=== PATIENT | female | born 1985 | race Asian ===

== ENCOUNTER 2017-07-27 02:45 | Inpatient (IN) | payer SELFPAY ==
[~2017-07-27] VITALS: Ht 162 cm; Wt 59.9 kg
[2017-07-27] MEDS ORDERED: CEFAZOLIN 2 GM IVPB PREMIX 50 ML IV ONE ×2 (03:30→05:38)
[2017-07-27] MEDS ORDERED: LR 1,000 ML IV ONE ×2 (03:30→05:14)
[2017-07-27 04:01] LABS: HEMATOCRIT 40.3 % (36-48); HEMOGLOBIN 13.1 g/dL (12.0-16.0); MEAN CORPUSCULAR HEMOGLOBIN 30 pg (27-31); MEAN CORPUSCULAR HGB CONC 33 % (32-36); MEAN CORPUSCULAR VOLUME 92 fL (79.0-98.0); PLATELET COUNT (AUTO) 271 K/uL (130-430); RED BLOOD CELL COUNT(AUTO) 4.41 MIL/uL (4.2-6.2); RED CELL DISTRIBUTION WIDTH 12.7 % (9.0-15.0)
[2017-07-27 04:02] LABS: BASOPHILS # (AUTO) 0.1 K/uL (0.0-0.2); BASOPHILS % (AUTO) 0.5 % (0.0-2.0); EOSINOPHILS # (AUTO) 0.1 K/uL (0.0-0.4); EOSINOPHILS % (AUTO) 1.4 % (0.0-4.0); LYMPHOCYTES % (AUTO) 20.2 % (20.5-51.5); MONOCYTES # (AUTO) 0.8 K/uL (0.0-1.0); MONOCYTES % (AUTO) 8.1 % (1.7-9.3); NEUTROPHILS % (AUTO) 69.8 % (40.0-70.0)
[2017-07-27] MEDS ORDERED: OXYTOCIN/NORMAL SALINE 1,000 ML IV ONE ×2 (04:13→06:34)
[2017-07-27] MEDS ORDERED: LR 1,000 ML IV SCH (04:13)
[2017-07-27] MEDS ORDERED: SENNOSIDES/DOCUSATE SODIUM 1 TAB TABLET(SENOKOT-S) PO PRN (04:15)
[2017-07-27] MEDS ORDERED: RHO(D) IMMUNE GLOBULIN/MALTOSE 1500 UNITS/1.3 ML (WINHRO) IM PRN (04:15)
[2017-07-27] MEDS ORDERED: LANOLIN 7 GM OINT. TP PRN (04:15)
[2017-07-27] MEDS ORDERED: ACETAMINOPHEN 325 MG TABLET PO PRN (04:15)
[2017-07-27] MEDS ORDERED: TEMAZEPAM 15 MG CAPSULE PO PRN (04:15)
[2017-07-27] MEDS ORDERED: HYDROcodone/ACETAMIN 5-325 MG TAB (NORCO/ VICODIN) PO PRN (04:15)
[2017-07-27] MEDS ORDERED: ANUSOL 1 EA SUPP.RECT (PREPARATION H) RC PRN (04:15)
[2017-07-27] MEDS ORDERED: BISACODYL 10 MG/SUPPOSITORY RC PRN (04:15)
[2017-07-27] MEDS ORDERED: SIMETHICONE 80 MG TAB.CHEW PO PRN (04:15)
[2017-07-27] MEDS ORDERED: MEASLES,MUMPS&RUBELLA VACC/PF 12500 UNIT/0.5 ML VIAL SUBQ PRN (04:15)
[2017-07-27] MEDS ORDERED: KETOROLAC TROMETHAMINE 30 MG VIAL IM PRN (05:15)
[2017-07-27] MEDS ORDERED: fentaNYL CITRATE/PF 100 MCG/2 ML AMP IVP PRN (05:15)
[2017-07-27] MEDS ORDERED: NALOXONE HCL 0.4 MG/ML AMP (NARCAN) IVP PRN (05:15)
[2017-07-27] MEDS ORDERED: ePHEDrine sulfate 50 MG/ML VIAL IVP PRN (05:15)
[2017-07-27] MEDS ORDERED: NALBUPHINE HCL 10 MG/ML AMP IVP PRN (05:15)
[2017-07-27] MEDS ORDERED: ONDANSETRON HCL 4 MG/2 ML VIAL IVP PRN ×2 (05:15)
[2017-07-27] MEDS ORDERED: DIPHENHYDRAMINE INJ 50 MG/ML VIAL IVP PRN (05:15)
[2017-07-27] MEDS ORDERED: OXYTOCIN 10 UNIT/ML VIAL IV ONE (05:38)
[2017-07-27] MEDS ORDERED: MORPHINE SULFATE 10MG/10ML PF AMP EP ONE (05:38)
[2017-07-27] MEDS ORDERED: DEXAMETHASONE SOD PHOSPHATE 4 MG/ML VIAL IVP ONE (05:38)
[2017-07-27] MEDS ORDERED: LR 1,000 ML IV.SOLN IV ONE (05:38)
[2017-07-27] MEDS ORDERED: FLU VACC QS 2017-18(36MOS+)/PF 0.5 ML/SYR SYRINGE I.M. PRN (08:30)
[2017-07-27 08:31] VITALS: BP_SYST 111
[2017-07-27] MEDS: DOCUSATE SODIUM 100 MG CAPSULE PO PRN (17:59)
[2017-07-27] MEDS: IBUPROFEN 600 MG TABLET PO SCH (18:00)
[2017-07-28] MEDS: DOCUSATE SODIUM 100 MG CAPSULE PO PRN ×2 (05:45→11:52)
[2017-07-28] MEDS: IBUPROFEN 600 MG TABLET PO SCH ×3 (05:45→18:10)
[2017-07-28 06:05] LABS: BASOPHILS % (AUTO) 0.3 % (0.0-2.0); EOSINOPHILS # (AUTO) 0.1 K/uL (0.0-0.4); EOSINOPHILS % (AUTO) 0.7 % (0.0-4.0); HEMATOCRIT 31.4 % (36-48); HEMOGLOBIN 10.6 g/dL (12.0-16.0); LYMPHOCYTES # (AUTO) 2.4 K/uL (1.0-5.5); LYMPHOCYTES % (AUTO) 19.5 % (20.5-51.5); MEAN CORPUSCULAR HEMOGLOBIN 31 pg (27-31); MEAN CORPUSCULAR HGB CONC 34 % (32-36); MEAN CORPUSCULAR VOLUME 92 fL (79.0-98.0); MONOCYTES # (AUTO) 0.8 K/uL (0.0-1.0); MONOCYTES % (AUTO) 6.2 % (1.7-9.3); NEUTROPHILS # (AUTO) 9.1 K/uL (1.8-7.7); NEUTROPHILS % (AUTO) 73.3 % (40.0-70.0); PLATELET COUNT (AUTO) 215 K/uL (130-430); RED BLOOD CELL COUNT(AUTO) 3.41 MIL/uL (4.2-6.2); RED CELL DISTRIBUTION WIDTH 12.5 % (9.0-15.0)
[2017-07-28 06:32] LABS: WHITE BLOOD COUNT (AUTO) 12.4 K/uL (4.8-10.8)
[2017-07-28] MEDS: HYDROcodone/ACETAMIN 5-325 MG TAB (NORCO/ VICODIN) PO PRN ×2 (08:29→16:46)
[2017-07-29] MEDS: IBUPROFEN 600 MG TABLET PO SCH ×5 (00:48→23:53)
[2017-07-29] MEDS ORDERED: OXYCODONE/ACETAMINOPHEN 5-325 TABLET ONE (14:28)
[2017-07-29] MEDS: DOCUSATE SODIUM 100 MG CAPSULE PO PRN (14:29)
[2017-07-29] MEDS ORDERED: OXYCODONE/ACETAMINOPHEN 5-325 TABLET PO PRN (14:45)
[2017-07-30] MEDS ORDERED: fentaNYL CITRATE/PF 100 MCG/2 ML AMP IVP ONE (05:38)
[2017-07-30] MEDS: IBUPROFEN 600 MG TABLET PO SCH ×2 (05:38→11:50)
[2017-07-30] MEDS ORDERED: DIPH-TET-PERTUS Vaccine 0.5 ML VIAL/Tdap (ADACEL) I.M. PRN (10:30)
== END 2017-07-30 11:55 | disposition home or self-care (01) | DRG 766 ==
LOC: SPU 02:45
PROVIDERS: ADMIT Obstetrics & Gynecology; ATTEND Obstetrics & Gynecology
PROC: 10D00Z1 Extraction of Products of Conception, Low, Open Approach (ICD-10-PCS; principal; 2017-07-27 03:45)
DX: O34.211 Maternal care for low transverse scar from previous cesarean delivery (principal); Z37.0 Single live birth; Z3A.39 39 weeks gestation of pregnancy
CPT/HCPCS: 36415; 85025; 86592; 86886; 86900; 86901; 90715; 94760; J0690; J1100; J1885; J2274; J2590; J3010; J7120; Q2037